=== PATIENT | female | born 1965 | race Caucasian/White ===

== ENCOUNTER 2021-09-13 17:08 | Emergency (ER) | payer OTHER ==
[~2021-09-13] VITALS: Ht 160 cm; Wt 70.8 kg
[~2021-09-13 17:08] MED LIST: CLIN300C52 PO; IBUP-44; LAC PO
[2021-09-13 17:33] VITALS: BP 153/96
--- NOTE | 2021-09-13 17:48 | NUR ---
PT BIB SELF C/O L KNEE PAIN X2WKS. PT DENIES TRAUMA. PAIN RATED 9/10. PAIN IS WORSE WHEN GETTING UP FROM SITTING. PT DENIES N/V/D; SKIN IS INTACT, PINK/WARM/DRY; AAOX4, PERRL, WITH EVEN AND STEADY GAIT; LUNGS CLEAR BL, BREATHING UNLABORED; HR EVEN AND REGULAR, BL PERIPHERAL PULSES PRESENT. VSS; PATIENT POSITIONED FOR COMFORT; HOB ELEVATED; BEDRAILS UP X2; BED DOWN.
--- NOTE | 2021-09-13 19:40 | NUR ---
PT ADMITS 15 YEARS OF ARTHIRITIS AND FOLLOWS UP WITH PCP. PT STATES SHE WENT TO URGENT CARE AND THEY TOLD HER TO COME TO ER AND GET AN XRAY AND BLOODWORK. RX: CYMBALTA AND GABAPENTIN
[2021-09-13] MEDS ORDERED: ACET-10509 PO (21:09)
[2021-09-13] MEDS ORDERED: DICL100G5 TP (21:09)
[2021-09-13 21:37] VITALS: BP 148/80
--- NOTE | 2021-09-13 21:37 | NUR ---
Patient discharged with v/s stable. Written and verbal after care instructions given and explained. Patient alert, oriented and verbalized understanding of instructions. Ambulatory with steady gait. All questions addressed prior to discharge. ID band removed. Patient advised to follow up with PMD. Rx of TYLENOL AND DICLOFENAC SODIUM given. Opportunity to ask questions provided and answered.
--- NOTE | 2021-09-13 21:42 | NUR ---
The patient's care was reviewed and supervised by Lorenza Menchaca RN.
== END 2021-09-13 21:37 | disposition home or self-care (01) ==
LOC: MED 17:08
DX: M25.462 Effusion, left knee (principal); Z79.899 Other long term (current) drug therapy
CPT/HCPCS: 73562; 93971; 99285; Q0092